=== PATIENT | male | born 1960 | race Caucasian/White ===

== ENCOUNTER 2017-03-16 15:27 | Outpatient (CLI) ==
[2017-03-16 15:38] LABS: BASOPHILS # (AUTO) 0.1 K/uL (0-0.2); BASOPHILS % (AUTO) 0.9 % (0.0-3.0); EOSINOPHILS # (AUTO) 0.3 K/ul (0.0-0.7); EOSINOPHILS % (AUTO) 3.3 % (0.0-7.0); HEMATOCRIT 48.6 % (42.0-52.0); HEMOGLOBIN 16.1 g/dl (14.0-18.0); IMMATURE GRANULOCYTE % (AUTO) 0.2 % (0.0-5.0); LYMPHOCYTES # (AUTO) 2.9 K/uL (0.60-3.4); LYMPHOCYTES % (AUTO) 31.8 (10.0-50.0); MEAN CORPUSCULAR HEMOGLOBIN 29.2 pg (27.0-31.0); MEAN CORPUSCULAR HGB CONC 33.1 (31.8-35.4); MONOCYTES # (AUTO) 0.5 K/uL (0.4-2.0); MONOCYTES % (AUTO) 5.5 (0-10); NEUTROPHILS # (AUTO) 5.3 K/ul (2.0-6.9); NEUTROPHILS % (AUTO) 58.3; PLATELET COUNT 208 10^3/uL (140-440); RED BLOOD COUNT 5.52 10^6/ul (4.70-6.10); WHITE BLOOD COUNT 9.02 K/ul (4.2-10.2)
--- NOTE | 2017-03-16 15:54 | DI ---
EXAM: Chest two view, frontal and lateral views. HISTORY: Preoperative evaluation. COMPARISON: None available. FINDINGS: The heart size is normal. There is no pulmonary vascular congestion. A 0.8 cm nodular de nsity projects over the lower thoracic spine on the lateral view. This is not seen on the frontal vi ew. Otherwise, the lungs are clear. No pleural effusion or pneumothorax is seen. No acute osseous abnormality identified. IMPRESSION: 1. No acute cardiopulmonary process. 2. Posterobasal nodular density seen only on the lateral view could be due to superimposition of str uctures. True nodule not excluded. Follow-up radiographs or correlation with chest CT recommended.
[2017-03-16 15:55] LABS: ALBUMIN/GLOBULIN RATIO 1.11; ANION GAP 13.4; BILIRUBIN,TOTAL 0.77 mg/dL (0.00-1.20); BUN/CREATININE RATIO 11.22; CALCIUM 9.7 mg/dL (8.2-10.2); CREATININE 0.98 mg/dL (0.60-1.10); POTASSIUM 4.4 mmol/L (3.5-5.1); TOTAL PROTEIN 7.6 g/dL (6.4-8.2)
== END 2017-03-16 15:28 | disposition home or self-care (01) ==
LOC: LAB 15:27
PROVIDERS: ATTEND Nurse Practitioner Family
DX: Z01.818 Encounter for other preprocedural examination (principal)
CPT/HCPCS: 36415; 80053; 85025; 93005; 93010

== ENCOUNTER 2017-03-21 12:39 | Outpatient (CLI) ==
--- NOTE | 2017-03-21 13:32 | CT ---
EXAM: CT of the chest without contrast History: Follow-up pulmonary nodules. Comparison: Chest radiograph 03/16/2017 Technique: Multiplanar CT images through the chest were obtained without the administration of IV co ntrast Findings: Heart size is normal. No pericardial effusion. Mild coronary calcifications. No thoraci c adenopathy. Great vessels are unremarkable. No consolidation. No pleural fluid and no pneumothor ax. No lung masses or lung nodules. Within the visualized upper abdomen, 1.5 cm benign right adrenal adenoma. 1.4 cm right renal cyst. No acute osseous abnormalities. Impression: 1. No acute cardiopulmonary process. 2. No lung masses or lung nodules. 3. Benign right adrenal adenoma.
== END 2017-03-21 12:40 | disposition home or self-care (01) ==
LOC: RAD 12:39
PROVIDERS: ATTEND Emergency Medicine
DX: R91.1 Solitary pulmonary nodule (principal)

== ENCOUNTER 2017-04-14 08:45 | Day surgery (SDC) ==
[2017-04-14] MEDS: OCUFEN 0.03% OPTH SOL OP PRN ×3 (09:10→09:40)
[2017-04-14] MEDS: CYCLOGYL 2% OPTH OP PRN ×3 (09:10→09:20)
[2017-04-14] MEDS: TETRACAINE 0.5% UNIT-DOSE OP PRN ×3 (09:10→09:40)
[2017-04-14] MEDS: AK-DILATE 10% OPTH SOL OP PRN ×3 (09:10→09:20)
[2017-04-14] MEDS ORDERED: ALBUTEROL 0.083% NEB NEB STA (09:32)
[2017-04-14] MEDS ORDERED: VERSED ONE (10:15)
[2017-04-14 14:22] VITALS: BP 136/67; TEMP 97.6
--- NOTE | 2017-04-15 13:07 | OP ---
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 POSTOPERATIVE DIAGNOSIS: SAME. OPERATION: PHACOEMULSIFICATION EXTRACTION OF CATARACT LEFT EYE. PLACEMENT OF POSTERIOR CHAMBER LENS. PHACO TIME 1:44.1 SECONDS AT 13% POWER. LENS MODEL MAU [id number]. DIOPTER +25.5D. TECHNIQUE: CLEAR CORNEA. ANESTHESIA: TOPICAL ANESTHESIA W/ANESTHESIA MONITORING. OPERATIVE REPORT: Topical anesthesia consisting of Tetracaine was applied to the cornea and Xylocaine Methyl Paraben free of MFP was injected intracamerally into the anterior chamber. The patient was then brought into the operating room , prepped and draped in the usual ophthalmic manner. A lid speculum was placed and the operating microscope was used. A paracentesis was made at the 3 o' clock position. A clear corneal incision was made just out to the limbus. The anterior chamber was entered just inside the clear cornea. Viscoelastic was injected into the anterior chamber. A capsulotomy was performed with a bent # 27 gauge needle. Phacoemulsification was then performed in the posterior chamber. After completion of the phacoemulsification, residual cortical material was aspirated with the irrigation-aspiration system. The posterior capsule was polished. Viscoelastic was injected into the anterior and posterior chambers to inflate the capsular bag. Lens were placed via an Unfolder system and stabilized in the bag. Viscoelastic was removed from the anterior chamber. The wound was checked for any leakage. The four sponges were removed from the fornix. Topical antibiotic steroid and nonsteroidal drops were also applied to the cornea. A Demarco shield was applied. The patient left the operating room in good condition without any complications. INTRAOPERATIVE MEDICATIONS: Xylocaine Methyl Paraben Free MPF MTDD
== END 2017-04-14 11:20 | disposition home or self-care (01) ==
LOC: SURG 08:45
PROVIDERS: ATTEND Ophthalmology
DX: H25.12 Age-related nuclear cataract, left eye (principal); H25.042 Posterior subcapsular polar age-related cataract, left eye
CPT/HCPCS: 94640